=== PATIENT | female | born 1975 | race Caucasian/White ===

== ENCOUNTER 2017-03-14 02:12 | Emergency (ER) | payer OTHER ==
[~2017-03-14] VITALS: Ht 157.5 cm; Wt 65.2 kg
[~2017-03-14 02:12] MED LIST: DONNATAL1 TABLET PO; NAPROSYN500 MG PO; TYLOX1 CAPSULE PO
[2017-03-14] MEDS ORDERED: PREDNISONE50 MG PO (04:28)
[2017-03-14] MEDS ORDERED: TYLENOL WITH C1 EACH PO (04:28)
[2017-03-14] MEDS ORDERED: DOXYCYCLINE HY100 MG PO (04:28)
[2017-03-14 04:59] VITALS: BP 142/80
== END 2017-03-14 05:01 | disposition home or self-care (01) ==
LOC: EME 02:12
DX: L03.113 Cellulitis of right upper limb (principal)
CPT/HCPCS: 99281; 99284; J7512

== ENCOUNTER 2017-07-11 10:08 | Emergency (ER) | payer OTHER ==
[~2017-07-11] VITALS: Ht 157.5 cm; Wt 67.2 kg
[~2017-07-11 10:08] MED LIST changes: +DOXYCYCLINE HY100 MG PO; +PREDNISONE50 MG PO; +TYLENOL WITH C1 EACH PO
[2017-07-11] MEDS ORDERED: ZITHROMAX Z-PA250 MG PO (12:17)
[2017-07-11] MEDS ORDERED: PHENERGAN VC1 ML PO (12:17)
[2017-07-11 12:58] VITALS: BP 128/79
== END 2017-07-11 13:02 | disposition home or self-care (01) ==
LOC: EME 10:08
DX: J20.9 Acute bronchitis, unspecified (principal); H66.91 Otitis media, unspecified, right ear; E03.9 Hypothyroidism, unspecified; F17.200 Nicotine dependence, unspecified, uncomplicated; Z88.0 Allergy status to penicillin
CPT/HCPCS: 71020; 99281; 99283

== ENCOUNTER 2017-12-03 16:32 | Emergency (ER) | payer OTHER ==
[~2017-12-03] VITALS: Ht 157.5 cm; Wt 58.9 kg
[~2017-12-03 16:32] MED LIST changes: +PHENERGAN VC1 ML PO; +ZITHROMAX Z-PA250 MG PO
[2017-12-03 17:06] LABS: HEMATOCRIT 36.9 % (36.0-46.0); HEMOGLOBIN 12.4 G/DL (11.9-15.5); MCH 28.5 PG (29.0-34.0); MCHC 33.6 G/DL (30.0-36.0); MCV 84.8 FL (83-99); PLATELET COUNT 365 K/uL (156-360); RBC DIS.WIDTH-CV 14.4 % (11.8-14.6); RBC DIS.WIDTH-SD 44.3 % (39-53); RED BLOOD COUNT 4.35 M/uL (3.80-5.20); WHITE BLOOD COUNT 7.3 K/uL (4.1-10.2)
[2017-12-03 17:14] LABS: CHLORIDE 109 mEq/L (99-109); SODIUM 139 mEq/L (136-147)
[2017-12-03 17:16] LABS: GLUCOSE 97 mg/dL (70-99); TOTAL PROTEIN 6.5 g/dL (6.4-8.3)
[2017-12-03 17:18] LABS: TOTAL BILIRUBIN 0.2 mg/dL (0.0-1.0)
[2017-12-03 17:19] LABS: ALKALINE PHOSPHATASE 83 IU/L (3-129)
[2017-12-03 17:20] LABS: CREATININE 0.7 mg/dL (0.6-1.3); GFR ESTIMATE (CALCULATED) > 59 mL/min/
[2017-12-03 17:21] LABS: AST (GOT) 15 IU/L (2-34); UREA NITROGEN (BUN) 13 mg/dL (9-23)
[2017-12-03 17:22] LABS: ALT (GPT) 16 IU/L (3-49)
[2017-12-03 17:23] LABS: LIPASE 29 U/L (1.0-51.0)
[2017-12-03 17:31] LABS: QUANTITATIVE HCG < 4.0 MIU/ML
[2017-12-03 18:32] LABS: APPEARANCE CLEAR ((CLEAR)); BILIRUBIN NEGATIVE; BLOOD NEGATIVE; COLOR STRAW ((YELLOW)); GLUCOSE (STRIP) NEGATIVE; KETONES NEGATIVE; LEUKOCYTES NEGATIVE; NITRITE NEGATIVE; PROTEIN (STRIP) NEGATIVE; SPECIFIC GRAVITY 1.005 (1.000-1.030); UCUL ADDED? NO; UROBILINOGEN 0.2 MG/DL (0.2-1.0)
[2017-12-03] MEDS ORDERED: ZOFRAN ODT4 MG PO (19:12)
[2017-12-03] MEDS ORDERED: TRAMADOL HCL50 MG PO (19:12)
[2017-12-03 20:11] VITALS: BP 120/68
== END 2017-12-03 20:12 | disposition home or self-care (01) ==
LOC: EME 16:32
DX: K80.70 Calculus of gallbladder and bile duct without cholecystitis without obstruction (principal); E03.9 Hypothyroidism, unspecified; F17.200 Nicotine dependence, unspecified, uncomplicated
CPT/HCPCS: 76705; 80053; 81003; 83690; 84702; 85027; 99281; 99284

== ENCOUNTER 2018-05-03 09:24 | Day surgery (SDC) | payer OTHER ==
[~2018-05-03] VITALS: Ht 154.9 cm; Wt 60.0 kg
[~2018-05-03 09:24] MED LIST changes: +SYNTHROID50 MCG PO; +TRAMADOL HCL50 MG PO; +ZOFRAN ODT4 MG PO
[2018-05-03 10:01] VITALS: BP 144/71
[2018-05-03] MEDS ORDERED: OXAYDO5 MG PO (12:37)
[2018-05-03 13:50] VITALS: BP 100/57
[2018-05-03 15:10] VITALS: BP 94/60
== END 2018-05-03 15:10 | disposition home or self-care (01) ==
LOC: SDC 09:24
PROVIDERS: Surgery
PROC: 0FT44ZZ Resection of Gallbladder, Percutaneous Endoscopic Approach (ICD-10-PCS; principal; 2018-05-03)
DX: K80.10 Calculus of gallbladder with chronic cholecystitis without obstruction (principal); D25.9 Leiomyoma of uterus, unspecified; K66.0 Peritoneal adhesions (postprocedural) (postinfection); E03.9 Hypothyroidism, unspecified; Z86.19 Personal history of other infectious and parasitic diseases; Z80.3 Family history of malignant neoplasm of breast; Z82.49 Family history of ischemic heart disease and other diseases of the circulatory system; Z83.3 Family history of diabetes mellitus; F17.200 Nicotine dependence, unspecified, uncomplicated; Z88.0 Allergy status to penicillin; Z88.5 Allergy status to narcotic agent
CPT/HCPCS: 81025; 88304; J1100; J1170; J1885; J2405; J2710; J3010; J7643; S0074